=== PATIENT | male | born 1940 | race Caucasian/White ===

== ENCOUNTER 2021-03-30 14:42 | Inpatient (IN) ==
[2021-03-30] MEDS ORDERED: Melatonin 3 MG TABLET PO PRN (19:21)
[2021-03-30] MEDS ORDERED: Naloxone 0.4 MG/ML INJ IVP PRN (19:21)
[2021-03-30] MEDS ORDERED: *HR* Promethazine 25 MG/ML VIAL IM PRN (19:21)
[2021-03-30] MEDS ORDERED: Acetaminophen 325 MG TABLET PO PRN (19:21)
[2021-03-30] MEDS ORDERED: *HR* HYDROcodone/Acet 5/325 mg TABLET PO PRN (19:21)
[2021-03-30] MEDS ORDERED: Chloraseptic Spray 177 ML BOTTLE MM PRN (19:25)
[2021-03-30] MEDS ORDERED: Saline Nasal Spray 44 ML BOTTLE NS PRN (19:25)
[2021-03-30] MEDS ORDERED: Artificial Tears SOLN 15 ML BOTTLE BOTH EYES PRN (19:25)
[2021-03-30] MEDS ORDERED: Saliva Stimulant 44.3ml BOTTLE PO PRN (19:25)
[2021-03-30 20:42] LABS: VBG HCO3 23 mEq/L (21-27); VBG PCO2 32 mmHg (41-51); VBG PH 7.47 pH Units (7.32-7.42); VBG PO2 83 mmHg (25-50)
[2021-03-30 20:46] LABS: Basophils # 0.1 K/mcL (0.0-0.2); Basophils % 0.5 %; Hematocrit 39.3 % (37.5-50.1); Hemoglobin 12.8 g/dL (12.9-16.9); Immature Granulocytes % 2.3 % (0-4); Lymphocytes # 0.8 K/mcL (0.6-4.6); Lymphocytes % 7.5 %; Mean Corpuscular HGB Conc 32.6 g/dL (31.6-35.5); Mean Corpuscular Hemoglobin 32.1 pg (28.0-33.3); Mean Corpuscular Volume 98.5 fL (83.0-100.0); Monocytes # 0.2 K/mcL (0.0-1.3); Monocytes % 1.9 %; Neutrophils # 9.2 K/mcL (1.6-8.9); Platelet Count 289 K/mcL (140-400); Red Blood Count 3.99 M/mcL (4.19-5.50); Red Cell Distribution Width 13.5 % (11.5-14.5); Segmented Neutrophils % 87.8 %; White Blood Count 10.4 K/mcL (4.3-11.1)
[2021-03-30] MEDS: Ipratropium 1 PUFF INHALER IH SCH (20:51)
[2021-03-30] MEDS: Chlorhexidine Rinse 15 ML MOUTHWASH MM SCH (21:00)
[2021-03-30 21:04] LABS: Alanine Aminotransferase 14 Units/L (7-52); Albumin 2.7 g/dL (3.5-5.7); Albumin/Globulin Ratio 0.9 (1.1-2.2); Alkaline Phosphatase 57 Units/L (34-104); Aspartate Amino Transferase 8 Units/L (13-39); BUN/Creatinine Ratio 33 (6-26); Bilirubin,Total 0.4 mg/dL (0.3-1.0); Blood Urea Nitrogen 18 mg/dL (8-23); C-Reactive Protein 139 mg/L (Less than 10); Calcium 8.2 mg/dL (8.6-10.3); Carbon Dioxide 23 mEq/L (23-29); Chloride 107 mEq/L (98-107); Globulin 3.1 g/dL (2.4-3.5); Glucose 243 mg/dL (70-105); Lactate Dehydrogenase 186 Units/L (140-271); Magnesium 2.1 mg/dL (1.6-2.6); Osmolality,Calculated 296 (280-300); Phosphorous 2.9 mg/dL (2.7-4.5); Potassium 3.9 mEq/L (3.5-5.1); Sodium 138 mEq/L (136-145); Total Protein 5.8 g/dL (6.4-8.9); Troponin I < 0.03 ng/mL (< 0.04); eGFR For African Americans > 60 (> 60); eGFR For Non-African Americans > 60 (> 60)
[2021-03-30] MEDS: Furosemide 20 MG/2 ML VIAL IVP SCH (23:11)
[2021-03-30] MEDS: Calcium Gluconate 1gm/50mL 1 GM/50 ML BAG IVPB SCH (23:11)
[2021-03-30] MEDS: Budesonide/Formoterol 160/4.5 1 PUFF INH IH SCH (23:52)
[2021-03-31] MEDS: Ipratropium 1 PUFF INHALER IH SCH ×6 (00:25→20:17)
[2021-03-31] MEDS: Calcium Gluconate 1gm/50mL 1 GM/50 ML BAG IVPB SCH (00:37)
[2021-03-31 00:52] LABS: ABG Base Excess 3 mEq/L (-2 to 3); ABG HCO3 26 mEq/L (21-27); ABG Oxygen Saturation 86 % (95-98); ABG PCO2 35 mmHg (35-45); ABG PH 7.48 pH Units (7.32-7.45); ABG PO2 48 mmHg (85-104); ABG TCO2 27 mEq/L (20-26)
[2021-03-31] MEDS ORDERED: *HR* Enoxaparin 40 MG/0.4 ML SYRINGE SQ SCH (06:00)
[2021-03-31 07:11] LABS: Alanine Aminotransferase 12 Units/L (7-52); Albumin 2.9 g/dL (3.5-5.7); Albumin/Globulin Ratio 0.9 (1.1-2.2); Alkaline Phosphatase 60 Units/L (34-104); Aspartate Amino Transferase 7 Units/L (13-39); BUN/Creatinine Ratio 30 (6-26); Bilirubin,Total 0.5 mg/dL (0.3-1.0); Blood Urea Nitrogen 16 mg/dL (8-23); Calcium 8.7 mg/dL (8.6-10.3); Carbon Dioxide 29 mEq/L (23-29); Chloride 105 mEq/L (98-107); Globulin 3.1 g/dL (2.4-3.5); Glucose 187 mg/dL (70-105); Lactate Dehydrogenase 167 Units/L (140-271); Magnesium 2.2 mg/dL (1.6-2.6); Osmolality,Calculated 298 (280-300); Phosphorous 3.5 mg/dL (2.7-4.5); Potassium 3.7 mEq/L (3.5-5.1); Sodium 141 mEq/L (136-145); eGFR For African Americans > 60 (> 60); eGFR For Non-African Americans > 60 (> 60)
[2021-03-31 07:20] LABS: Basophils % 0.3 %; Hematocrit 39.8 % (37.5-50.1); Hemoglobin 12.9 g/dL (12.9-16.9); Lymphocytes # 1.2 K/mcL (0.6-4.6); Lymphocytes % 8.8 %; Mean Corpuscular HGB Conc 32.4 g/dL (31.6-35.5); Mean Corpuscular Hemoglobin 31.6 pg (28.0-33.3); Mean Corpuscular Volume 97.5 fL (83.0-100.0); Mean Platelet Volume 9.9 fL (9.4-12.4); Monocytes # 0.4 K/mcL (0.0-1.3); Monocytes % 2.7 %; Neutrophils # 12.1 K/mcL (1.6-8.9); Platelet Count 332 K/mcL (140-400); Red Blood Count 4.08 M/mcL (4.19-5.50); Red Cell Distribution Width 13.6 % (11.5-14.5); Segmented Neutrophils % 86.2 %; White Blood Count 14.1 K/mcL (4.3-11.1)
[2021-03-31 07:22] LABS: INR 1.2; Prothrombin Time 13.7 Seconds (9.4-12.1)
[2021-03-31] MEDS: Cyanocobalamin (B-12) 1,000 MCG TABLET PO SCH (07:46)
[2021-03-31] MEDS: Cholecalciferol (D-3) 1,000 UNIT (25MCG) TABLET PO SCH (07:46)
[2021-03-31] MEDS ORDERED: *HR* Enoxaparin 30 MG/0.3 ML SYRINGE SQ ONE (07:46)
[2021-03-31] MEDS: Folic Acid 1 MG TABLET PO SCH (07:47)
[2021-03-31] MEDS: Multivit/Ca/Min/Fe/FA 1 TAB TABLET PO SCH (07:47)
[2021-03-31] MEDS: Thiamine (B-1) 100 MG TABLET PO SCH (07:47)
[2021-03-31] MEDS: Aspirin Enteric Coated 325 MG Tablet PO SCH (07:47)
[2021-03-31] MEDS: Chlorhexidine Rinse 15 ML MOUTHWASH MM SCH ×2 (07:49→22:04)
[2021-03-31] MEDS: Furosemide 20 MG/2 ML VIAL IVP SCH (07:49)
[2021-03-31 09:07] LABS: C-Reactive Protein 120 mg/L (Less than 10)
[2021-03-31] MEDS: Budesonide/Formoterol 160/4.5 1 PUFF INH IH SCH ×2 (09:17→20:17)
[2021-03-31] MEDS: Piperacillin/Tazobactam 3.375 GM in 0.9 % Sodium Chloride Mini Bag 100 ML IVPB SCH (16:41)
[2021-03-31 17:22] LABS: Ferritin 376 ng/mL (20-250)
[2021-03-31 18:06] LABS: Ferritin 337 ng/mL (20-250)
[2021-03-31] MEDS: *HR* Enoxaparin 80 MG/0.8 ML SYRINGE SQ SCH (22:05)
[2021-04-01] MEDS: Ipratropium 1 PUFF INHALER IH SCH ×7 (00:06→23:39)
[2021-04-01] MEDS: Piperacillin/Tazobactam 3.375 GM in 0.9 % Sodium Chloride Mini Bag 100 ML IVPB SCH ×3 (00:22→16:58)
[2021-04-01] MEDS: Budesonide/Formoterol 160/4.5 1 PUFF INH IH SCH ×2 (07:46→20:00)
[2021-04-01] MEDS: Cholecalciferol (D-3) 1,000 UNIT (25MCG) TABLET PO SCH (09:59)
[2021-04-01] MEDS: Cyanocobalamin (B-12) 1,000 MCG TABLET PO SCH (09:59)
[2021-04-01] MEDS: Thiamine (B-1) 100 MG TABLET PO SCH (09:59)
[2021-04-01] MEDS: Chlorhexidine Rinse 15 ML MOUTHWASH MM SCH ×2 (09:59→20:59)
[2021-04-01] MEDS: Aspirin Enteric Coated 325 MG Tablet PO SCH (09:59)
[2021-04-01] MEDS: Furosemide 20 MG/2 ML VIAL IVP SCH (10:00)
[2021-04-01] MEDS: Multivit/Ca/Min/Fe/FA 1 TAB TABLET PO SCH (10:00)
[2021-04-01] MEDS: Folic Acid 1 MG TABLET PO SCH (10:00)
[2021-04-01] MEDS: *HR* Enoxaparin 80 MG/0.8 ML SYRINGE SQ SCH ×2 (10:01→20:59)
[2021-04-01 12:10] LABS: Basophils % 0.2 %; Hemoglobin 12.9 g/dL (12.9-16.9); Immature Granulocytes % 1.5 % (0-4); Lymphocytes # 1.1 K/mcL (0.6-4.6); Lymphocytes % 6.9 %; Mean Corpuscular HGB Conc 33.1 g/dL (31.6-35.5); Mean Corpuscular Hemoglobin 32.9 pg (28.0-33.3); Mean Corpuscular Volume 99.5 fL (83.0-100.0); Mean Platelet Volume 9.5 fL (9.4-12.4); Monocytes # 0.7 K/mcL (0.0-1.3); Monocytes % 4.1 %; Neutrophils # 14.1 K/mcL (1.6-8.9); Platelet Count 408 K/mcL (140-400); Red Blood Count 3.92 M/mcL (4.19-5.50); Red Cell Distribution Width 13.7 % (11.5-14.5); Segmented Neutrophils % 87.3 %; White Blood Count 16.2 K/mcL (4.3-11.1)
[2021-04-01 12:26] LABS: Alanine Aminotransferase 14 Units/L (7-52); Albumin 2.9 g/dL (3.5-5.7); Albumin/Globulin Ratio 0.9 (1.1-2.2); Alkaline Phosphatase 52 Units/L (34-104); Aspartate Amino Transferase 9 Units/L (13-39); BUN/Creatinine Ratio 37 (6-26); Bilirubin,Total 0.4 mg/dL (0.3-1.0); Blood Urea Nitrogen 21 mg/dL (8-23); C-Reactive Protein 40 mg/L (Less than 10); Calcium 8.5 mg/dL (8.6-10.3); Carbon Dioxide 32 mEq/L (23-29); Chloride 104 mEq/L (98-107); Globulin 3.2 g/dL (2.4-3.5); Glucose 157 mg/dL (70-105); Osmolality,Calculated 298 (280-300); Potassium 3.9 mEq/L (3.5-5.1); Sodium 141 mEq/L (136-145); Total Protein 6.1 g/dL (6.4-8.9); eGFR For African Americans > 60 (> 60); eGFR For Non-African Americans > 60 (> 60)
[2021-04-02 01:18] LABS: Hematocrit 35.9 % (37.5-50.1); Hemoglobin 11.6 g/dL (12.9-16.9); Mean Corpuscular HGB Conc 32.3 g/dL (31.6-35.5); Mean Corpuscular Volume 99.2 fL (83.0-100.0); Mean Platelet Volume 9.5 fL (9.4-12.4); Platelet Count 369 K/mcL (140-400); Red Blood Count 3.62 M/mcL (4.19-5.50); Red Cell Distribution Width 13.6 % (11.5-14.5); White Blood Count 12.6 K/mcL (4.3-11.1)
[2021-04-02] MEDS: Piperacillin/Tazobactam 3.375 GM in 0.9 % Sodium Chloride Mini Bag 100 ML IVPB SCH ×3 (01:32→17:25)
[2021-04-02 01:42] LABS: BUN/Creatinine Ratio 39 (6-26); Blood Urea Nitrogen 22 mg/dL (8-23); Calcium 8.1 mg/dL (8.6-10.3); Carbon Dioxide 30 mEq/L (23-29); Chloride 106 mEq/L (98-107); Glucose 168 mg/dL (70-105); Lactate Dehydrogenase 170 Units/L (140-271); Osmolality,Calculated 299 (280-300); Potassium 4.2 mEq/L (3.5-5.1); Sodium 141 mEq/L (136-145); eGFR For African Americans > 60 (> 60); eGFR For Non-African Americans > 60 (> 60)
[2021-04-02 03:28] LABS: Ferritin 278 ng/mL (20-250)
[2021-04-02] MEDS: Ipratropium 1 PUFF INHALER IH SCH ×5 (04:12→19:54)
[2021-04-02] MEDS: Budesonide/Formoterol 160/4.5 1 PUFF INH IH SCH ×2 (07:37→19:54)
[2021-04-02] MEDS: Multivit/Ca/Min/Fe/FA 1 TAB TABLET PO SCH (10:05)
[2021-04-02] MEDS: Aspirin Enteric Coated 325 MG Tablet PO SCH (10:05)
[2021-04-02] MEDS: Cyanocobalamin (B-12) 1,000 MCG TABLET PO SCH (10:05)
[2021-04-02] MEDS: Thiamine (B-1) 100 MG TABLET PO SCH (10:05)
[2021-04-02] MEDS: Chlorhexidine Rinse 15 ML MOUTHWASH MM SCH ×2 (10:05→20:26)
[2021-04-02] MEDS: Cholecalciferol (D-3) 1,000 UNIT (25MCG) TABLET PO SCH (10:05)
[2021-04-02] MEDS: Folic Acid 1 MG TABLET PO SCH (10:05)
[2021-04-02] MEDS: *HR* Enoxaparin 80 MG/0.8 ML SYRINGE SQ SCH ×2 (10:27→20:26)
[2021-04-02] MEDS: Furosemide 20 MG/2 ML VIAL IVP SCH (12:04)
[2021-04-03] MEDS: Piperacillin/Tazobactam 3.375 GM in 0.9 % Sodium Chloride Mini Bag 100 ML IVPB SCH ×4 (00:03→23:37)
[2021-04-03] MEDS: Ipratropium 1 PUFF INHALER IH SCH ×7 (00:30→23:54)
[2021-04-03] MEDS: Budesonide/Formoterol 160/4.5 1 PUFF INH IH SCH ×2 (07:55→19:41)
[2021-04-03] MEDS: Multivit/Ca/Min/Fe/FA 1 TAB TABLET PO SCH (08:44)
[2021-04-03] MEDS: Thiamine (B-1) 100 MG TABLET PO SCH (08:45)
[2021-04-03] MEDS: Aspirin Enteric Coated 325 MG Tablet PO SCH (08:45)
[2021-04-03] MEDS: Chlorhexidine Rinse 15 ML MOUTHWASH MM SCH ×2 (08:45→20:06)
[2021-04-03] MEDS: Cyanocobalamin (B-12) 1,000 MCG TABLET PO SCH (08:45)
[2021-04-03] MEDS: Cholecalciferol (D-3) 1,000 UNIT (25MCG) TABLET PO SCH (08:45)
[2021-04-03] MEDS: *HR* Enoxaparin 80 MG/0.8 ML SYRINGE SQ SCH ×2 (08:45→20:06)
[2021-04-03] MEDS: Folic Acid 1 MG TABLET PO SCH (08:45)
[2021-04-03 09:20] LABS: Hematocrit 39.6 % (37.5-50.1); Hemoglobin 12.7 g/dL (12.9-16.9); Mean Corpuscular HGB Conc 32.1 g/dL (31.6-35.5); Mean Corpuscular Volume 99.7 fL (83.0-100.0); Mean Platelet Volume 9.8 fL (9.4-12.4); Platelet Count 363 K/mcL (140-400); Red Blood Count 3.97 M/mcL (4.19-5.50); Red Cell Distribution Width 13.4 % (11.5-14.5); White Blood Count 12.5 K/mcL (4.3-11.1)
[2021-04-03] MEDS: Furosemide 20 MG/2 ML VIAL IVP SCH (09:32)
[2021-04-03 09:38] LABS: BUN/Creatinine Ratio 40 (6-26); Blood Urea Nitrogen 19 mg/dL (8-23); Calcium 8.5 mg/dL (8.6-10.3); Carbon Dioxide 30 mEq/L (23-29); Chloride 103 mEq/L (98-107); Glucose 142 mg/dL (70-105); Osmolality,Calculated 295 (280-300); Potassium 3.6 mEq/L (3.5-5.1); Sodium 140 mEq/L (136-145); eGFR For African Americans > 60 (> 60); eGFR For Non-African Americans > 60 (> 60)
[2021-04-04] MEDS: Ipratropium 1 PUFF INHALER IH SCH ×5 (03:46→19:48)
[2021-04-04 06:11] LABS: Basophils % 0.2 %; Hematocrit 35.8 % (37.5-50.1); Immature Granulocytes % 1.7 % (0-4); Lymphocytes # 2.2 K/mcL (0.6-4.6); Lymphocytes % 16.7 %; Mean Corpuscular HGB Conc 33.5 g/dL (31.6-35.5); Mean Corpuscular Hemoglobin 32.7 pg (28.0-33.3); Mean Corpuscular Volume 97.5 fL (83.0-100.0); Mean Platelet Volume 9.5 fL (9.4-12.4); Monocytes % 7.8 %; Neutrophils # 9.6 K/mcL (1.6-8.9); Platelet Count 370 K/mcL (140-400); Red Blood Count 3.67 M/mcL (4.19-5.50); Red Cell Distribution Width 13.4 % (11.5-14.5); Segmented Neutrophils % 73.6 %; White Blood Count 13.1 K/mcL (4.3-11.1)
[2021-04-04 06:33] LABS: Alanine Aminotransferase 18 Units/L (7-52); Albumin 2.9 g/dL (3.5-5.7); Albumin/Globulin Ratio 1.2 (1.1-2.2); Alkaline Phosphatase 48 Units/L (34-104); Aspartate Amino Transferase 10 Units/L (13-39); BUN/Creatinine Ratio 39 (6-26); Bilirubin,Total 0.4 mg/dL (0.3-1.0); Blood Urea Nitrogen 23 mg/dL (8-23); Calcium 8.5 mg/dL (8.6-10.3); Carbon Dioxide 30 mEq/L (23-29); Chloride 106 mEq/L (98-107); Globulin 2.5 g/dL (2.4-3.5); Glucose 121 mg/dL (70-105); Lactate Dehydrogenase 160 Units/L (140-271); Osmolality,Calculated 297 (280-300); Potassium 3.7 mEq/L (3.5-5.1); Sodium 141 mEq/L (136-145); Total Protein 5.4 g/dL (6.4-8.9); eGFR For African Americans > 60 (> 60); eGFR For Non-African Americans > 60 (> 60)
[2021-04-04 06:47] LABS: Ferritin 248 ng/mL (20-250)
[2021-04-04] MEDS: Budesonide/Formoterol 160/4.5 1 PUFF INH IH SCH ×2 (07:16→19:48)
[2021-04-04] MEDS: Piperacillin/Tazobactam 3.375 GM in 0.9 % Sodium Chloride Mini Bag 100 ML IVPB SCH ×3 (07:57→23:47)
[2021-04-04] MEDS: Chlorhexidine Rinse 15 ML MOUTHWASH MM SCH ×2 (08:01→20:07)
[2021-04-04] MEDS: Cholecalciferol (D-3) 1,000 UNIT (25MCG) TABLET PO SCH (08:02)
[2021-04-04] MEDS: Cyanocobalamin (B-12) 1,000 MCG TABLET PO SCH (08:02)
[2021-04-04] MEDS: Folic Acid 1 MG TABLET PO SCH (08:02)
[2021-04-04] MEDS: Thiamine (B-1) 100 MG TABLET PO SCH (08:02)
[2021-04-04] MEDS: Multivit/Ca/Min/Fe/FA 1 TAB TABLET PO SCH (08:02)
[2021-04-04] MEDS: Aspirin Enteric Coated 325 MG Tablet PO SCH (08:02)
[2021-04-04] MEDS: *HR* Enoxaparin 80 MG/0.8 ML SYRINGE SQ SCH (08:03)
[2021-04-04] MEDS: Furosemide 20 MG/2 ML VIAL IVP SCH (08:06)
[2021-04-05] MEDS: Ipratropium 1 PUFF INHALER IH SCH ×7 (00:11→23:44)
[2021-04-05 05:09] LABS: Basophils % 0.2 %; Eosinophils % 0.1 %; Hematocrit 36.4 % (37.5-50.1); Immature Granulocytes % 2.1 % (0-4); Lymphocytes # 2.5 K/mcL (0.6-4.6); Lymphocytes % 18.7 %; Mean Corpuscular Hemoglobin 32.3 pg (28.0-33.3); Mean Corpuscular Volume 98.1 fL (83.0-100.0); Mean Platelet Volume 9.5 fL (9.4-12.4); Monocytes # 0.7 K/mcL (0.0-1.3); Monocytes % 5.4 %; Neutrophils # 9.9 K/mcL (1.6-8.9); Platelet Count 377 K/mcL (140-400); Red Blood Count 3.71 M/mcL (4.19-5.50); Red Cell Distribution Width 13.5 % (11.5-14.5); Segmented Neutrophils % 73.5 %; White Blood Count 13.4 K/mcL (4.3-11.1)
[2021-04-05 05:19] LABS: BUN/Creatinine Ratio 36 (6-26); Blood Urea Nitrogen 20 mg/dL (8-23); Calcium 8.2 mg/dL (8.6-10.3); Carbon Dioxide 29 mEq/L (23-29); Chloride 106 mEq/L (98-107); Glucose 136 mg/dL (70-105); Osmolality,Calculated 297 (280-300); Potassium 3.7 mEq/L (3.5-5.1); Sodium 141 mEq/L (136-145); eGFR For African Americans > 60 (> 60); eGFR For Non-African Americans > 60 (> 60)
[2021-04-05] MEDS: *HR* Enoxaparin 40 MG/0.4 ML SYRINGE SQ SCH (05:27)
[2021-04-05] MEDS: Budesonide/Formoterol 160/4.5 1 PUFF INH IH SCH ×2 (07:25→20:06)
[2021-04-05] MEDS: Piperacillin/Tazobactam 3.375 GM in 0.9 % Sodium Chloride Mini Bag 100 ML IVPB SCH ×2 (08:33→16:33)
[2021-04-05] MEDS: Chlorhexidine Rinse 15 ML MOUTHWASH MM SCH (08:34)
[2021-04-05] MEDS: Folic Acid 1 MG TABLET PO SCH (08:35)
[2021-04-05] MEDS: Cholecalciferol (D-3) 1,000 UNIT (25MCG) TABLET PO SCH (08:35)
[2021-04-05] MEDS: Cyanocobalamin (B-12) 1,000 MCG TABLET PO SCH (08:35)
[2021-04-05] MEDS: Thiamine (B-1) 100 MG TABLET PO SCH (08:35)
[2021-04-05] MEDS: Aspirin Enteric Coated 325 MG Tablet PO SCH (08:35)
[2021-04-05] MEDS: Multivit/Ca/Min/Fe/FA 1 TAB TABLET PO SCH (08:35)
[2021-04-05] MEDS: Furosemide 20 MG/2 ML VIAL IVP SCH (08:37)
[2021-04-05] MEDS: Vancomycin 1,500 MG/265 ML IV.SOLN IVPB SCH (13:28)
[2021-04-06] MEDS ORDERED: Piperacillin/Tazobactam 3.375 GM VIAL ONE (00:38)
[2021-04-06] MEDS: Piperacillin/Tazobactam 3.375 GM in 0.9 % Sodium Chloride Mini Bag 100 ML IVPB SCH ×3 (01:19→16:19)
[2021-04-06] MEDS: Vancomycin 1,500 MG/265 ML IV.SOLN IVPB SCH (01:19)
[2021-04-06 01:28] LABS: Hematocrit 37.3 % (37.5-50.1); Hemoglobin 12.2 g/dL (12.9-16.9); Mean Corpuscular HGB Conc 32.7 g/dL (31.6-35.5); Mean Corpuscular Volume 97.9 fL (83.0-100.0); Mean Platelet Volume 9.4 fL (9.4-12.4); Platelet Count 373 K/mcL (140-400); Red Blood Count 3.81 M/mcL (4.19-5.50); Red Cell Distribution Width 13.3 % (11.5-14.5); White Blood Count 13.6 K/mcL (4.3-11.1)
[2021-04-06 01:48] LABS: BUN/Creatinine Ratio 37 (6-26); Blood Urea Nitrogen 23 mg/dL (8-23); Calcium 8.2 mg/dL (8.6-10.3); Carbon Dioxide 29 mEq/L (23-29); Chloride 108 mEq/L (98-107); Glucose 166 mg/dL (70-105); Osmolality,Calculated 301 (280-300); Potassium 3.9 mEq/L (3.5-5.1); Sodium 142 mEq/L (136-145); eGFR For African Americans > 60 (> 60); eGFR For Non-African Americans > 60 (> 60)
[2021-04-06] MEDS: Ipratropium 1 PUFF INHALER IH SCH ×6 (03:55→23:41)
[2021-04-06] MEDS: *HR* Enoxaparin 40 MG/0.4 ML SYRINGE SQ SCH (05:48)
[2021-04-06] MEDS: Budesonide/Formoterol 160/4.5 1 PUFF INH IH SCH ×2 (07:36→19:49)
[2021-04-06] MEDS: Furosemide 20 MG/2 ML VIAL IVP SCH (09:33)
[2021-04-06] MEDS: Folic Acid 1 MG TABLET PO SCH (09:39)
[2021-04-06] MEDS: Multivit/Ca/Min/Fe/FA 1 TAB TABLET PO SCH (09:39)
[2021-04-06] MEDS: Aspirin Enteric Coated 325 MG Tablet PO SCH (09:39)
[2021-04-06] MEDS: Cyanocobalamin (B-12) 1,000 MCG TABLET PO SCH (09:39)
[2021-04-06] MEDS: Cholecalciferol (D-3) 1,000 UNIT (25MCG) TABLET PO SCH (09:39)
[2021-04-06] MEDS: Thiamine (B-1) 100 MG TABLET PO SCH (09:39)
[2021-04-06] MEDS: dexAMETHasone 4 MG TABLET PO SCH (09:40)
[2021-04-06] MEDS: Doxycycline 100 MG CAPSULE PO SCH (18:15)
[2021-04-07] MEDS: Piperacillin/Tazobactam 3.375 GM in 0.9 % Sodium Chloride Mini Bag 100 ML IVPB SCH ×2 (00:01→09:56)
[2021-04-07] MEDS: Ipratropium 1 PUFF INHALER IH SCH ×6 (03:53→23:33)
[2021-04-07] MEDS: *HR* Enoxaparin 40 MG/0.4 ML SYRINGE SQ SCH (05:24)
[2021-04-07] MEDS: Doxycycline 100 MG CAPSULE PO SCH (05:24)
[2021-04-07] MEDS: Budesonide/Formoterol 160/4.5 1 PUFF INH IH SCH ×2 (07:16→20:42)
[2021-04-07] MEDS: dexAMETHasone 4 MG TABLET PO SCH (09:57)
[2021-04-07] MEDS: Thiamine (B-1) 100 MG TABLET PO SCH (09:57)
[2021-04-07] MEDS: Multivit/Ca/Min/Fe/FA 1 TAB TABLET PO SCH (09:57)
[2021-04-07] MEDS: Cyanocobalamin (B-12) 1,000 MCG TABLET PO SCH (09:57)
[2021-04-07] MEDS: Furosemide 20 MG/2 ML VIAL IVP SCH (09:58)
[2021-04-07] MEDS: Folic Acid 1 MG TABLET PO SCH (09:58)
[2021-04-07] MEDS: Aspirin Enteric Coated 325 MG Tablet PO SCH (09:58)
[2021-04-07] MEDS: Cholecalciferol (D-3) 1,000 UNIT (25MCG) TABLET PO SCH (09:58)
[2021-04-08] MEDS: Ipratropium 1 PUFF INHALER IH SCH ×4 (03:58→15:56)
[2021-04-08] MEDS: *HR* Enoxaparin 40 MG/0.4 ML SYRINGE SQ SCH (06:31)
[2021-04-08] MEDS: Budesonide/Formoterol 160/4.5 1 PUFF INH IH SCH (08:27)
[2021-04-08] MEDS: Folic Acid 1 MG TABLET PO SCH (09:44)
[2021-04-08] MEDS: dexAMETHasone 4 MG TABLET PO SCH (09:44)
[2021-04-08] MEDS: Multivit/Ca/Min/Fe/FA 1 TAB TABLET PO SCH (09:45)
[2021-04-08] MEDS: Thiamine (B-1) 100 MG TABLET PO SCH (09:45)
[2021-04-08] MEDS: Aspirin Enteric Coated 325 MG Tablet PO SCH (09:45)
[2021-04-08] MEDS: Cyanocobalamin (B-12) 1,000 MCG TABLET PO SCH (09:45)
[2021-04-08] MEDS: Cholecalciferol (D-3) 1,000 UNIT (25MCG) TABLET PO SCH (09:46)
[2021-04-08] MEDS: Furosemide 20 MG/2 ML VIAL IVP SCH (09:46)
[2021-04-08 11:49] VITALS: PULSE 76
[2021-04-08 12:50] LABS: BUN/Creatinine Ratio 43 (6-26); Blood Urea Nitrogen 22 mg/dL (8-23); Calcium 8.9 mg/dL (8.6-10.3); Carbon Dioxide 32 mEq/L (23-29); Chloride 104 mEq/L (98-107); Glucose 85 mg/dL (70-105); Osmolality,Calculated 293 (280-300); Potassium 3.5 mEq/L (3.5-5.1); Sodium 140 mEq/L (136-145); eGFR For African Americans > 60 (> 60); eGFR For Non-African Americans > 60 (> 60)
[2021-04-08 16:02] VITALS: BP 132/57; TEMP 97.1; O2SAT 19
== END 2021-04-08 18:25 | disposition other institution (70) | DRG 177 ==
LOC: 2NENU → SUATTDRO 16:29
PROVIDERS: ADMIT Hospitalist; ATTEND Internal Medicine

== ENCOUNTER 2021-07-25 08:44 | Observation (INO) ==
[2021-07-25] MEDS ORDERED: 0.9 % Sodium Chloride 500 ML ONE (10:01)
[2021-07-25] MEDS ORDERED: Ondansetron 4 MG/2 ML VIAL IVP PRN (12:47)
[2021-07-25] MEDS ORDERED: Melatonin 3 MG TABLET PO PRN (12:47)
[2021-07-25] MEDS ORDERED: Naloxone 0.4 MG/ML INJ IVP PRN (12:47)
[2021-07-25] MEDS ORDERED: Acetaminophen 325 MG TABLET PO PRN (12:47)
[2021-07-25 14:00] LABS: Basophils # 0.1 K/mcL (0.0-0.2); Basophils % 0.4 %; Eosinophils # 0.1 K/mcL (0.0-0.6); Eosinophils % 0.6 %; Hematocrit 42.1 % (37.5-50.1); Hemoglobin 13.6 g/dL (12.9-16.9); Immature Granulocytes % 0.7 % (0-4); Lymphocytes # 1.7 K/mcL (0.6-4.6); Lymphocytes % 12.3 %; Mean Corpuscular HGB Conc 32.3 g/dL (31.6-35.5); Mean Corpuscular Hemoglobin 31.4 pg (28.0-33.3); Mean Corpuscular Volume 97.2 fL (83.0-100.0); Mean Platelet Volume 10.3 fL (9.4-12.4); Monocytes # 0.7 K/mcL (0.0-1.3); Monocytes % 4.9 %; Neutrophils # 11.3 K/mcL (1.6-8.9); Nucleated Red Blood Cells 0.1 /100 WBC (0); Platelet Count 223 K/mcL (140-400); Red Blood Count 4.33 M/mcL (4.19-5.50); Red Cell Distribution Width 13.1 % (11.5-14.5); Segmented Neutrophils % 81.1 %; White Blood Count 13.9 K/mcL (4.3-11.1)
[2021-07-25] MEDS: *HR* HYDROcodone/Acet 5/325 mg TABLET PO PRN (14:05)
[2021-07-25 14:25] LABS: BUN/Creatinine Ratio 20 (6-26); Blood Urea Nitrogen 13 mg/dL (8-23); Calcium 9.1 mg/dL (8.6-10.3); Carbon Dioxide 21 mEq/L (23-29); Chloride 109 mEq/L (98-107); Glucose 161 mg/dL (70-105); Osmolality,Calculated 292 (280-300); Potassium 4.1 mEq/L (3.5-5.1); Sodium 139 mEq/L (136-145); eGFR For African Americans > 60 (> 60); eGFR For Non-African Americans > 60 (> 60)
[2021-07-25] MEDS: Ipratropium/Albuterol Neb 3 ML IH SCH ×2 (16:18→19:48)
[2021-07-25] MEDS: Budesonide/Formoterol 160/4.5 1 PUFF INH IH SCH (19:48)
[2021-07-26] MEDS: *HR* HYDROcodone/Acet 5/325 mg TABLET PO PRN ×2 (00:39→06:05)
[2021-07-26 03:15] LABS: Basophils % 0.4 %; Eosinophils # 0.1 K/mcL (0.0-0.6); Eosinophils % 1.2 %; Hematocrit 39.7 % (37.5-50.1); Hemoglobin 12.2 g/dL (12.9-16.9); Immature Granulocytes % 0.5 % (0-4); Lymphocytes # 2.9 K/mcL (0.6-4.6); Lymphocytes % 26.1 %; Mean Corpuscular HGB Conc 30.7 g/dL (31.6-35.5); Mean Corpuscular Hemoglobin 30.3 pg (28.0-33.3); Mean Corpuscular Volume 98.5 fL (83.0-100.0); Mean Platelet Volume 9.7 fL (9.4-12.4); Monocytes # 1.2 K/mcL (0.0-1.3); Monocytes % 10.5 %; Neutrophils # 6.9 K/mcL (1.6-8.9); Platelet Count 232 K/mcL (140-400); Red Blood Count 4.03 M/mcL (4.19-5.50); Red Cell Distribution Width 13.2 % (11.5-14.5); Segmented Neutrophils % 61.3 %; White Blood Count 11.2 K/mcL (4.3-11.1)
[2021-07-26 03:32] LABS: BUN/Creatinine Ratio 19 (6-26); Blood Urea Nitrogen 14 mg/dL (8-23); Calcium 8.9 mg/dL (8.6-10.3); Carbon Dioxide 25 mEq/L (23-29); Chloride 109 mEq/L (98-107); Glucose 122 mg/dL (70-105); Magnesium 1.8 mg/dL (1.6-2.6); Osmolality,Calculated 290 (280-300); Potassium 4.2 mEq/L (3.5-5.1); Sodium 139 mEq/L (136-145); eGFR For African Americans > 60 (> 60); eGFR For Non-African Americans > 60 (> 60)
[2021-07-26] MEDS: Ipratropium/Albuterol Neb 3 ML IH SCH ×2 (04:31→10:15)
[2021-07-26] MEDS ORDERED: *HR* Enoxaparin 40 MG/0.4 ML SYRINGE SQ SCH (06:00)
[2021-07-26] MEDS: Budesonide/Formoterol 160/4.5 1 PUFF INH IH SCH (10:15)
[2021-07-26 10:56] VITALS: TEMP 98.5
[2021-07-26] MEDS ORDERED: Ipratropium/Albuterol Neb 3 ML IH PRN (13:59)
[2021-07-26 15:29] VITALS: BP 122/53; PULSE 81; O2SAT 96
== END 2021-07-26 16:21 | disposition home or self-care (01) ==
LOC: 2NENU 08:44 → RAD 08:44 → SUATTDRO 11:52
PROVIDERS: ADMIT Hospitalist; ATTEND Hospitalist